=== PATIENT | female | born 1945 | race Caucasian/White ===

== ENCOUNTER → 2023-12-12 10:18 | Outpatient (REF) | payer OTHER, SELFPAY | LOC: RAD 10:18 | PROVIDERS: ATTENDING PHYSICIAN Obstetrics & Gynecology; FAMILY PHYSICIAN Family Medicine | DX: Z78.0 Asymptomatic menopausal state (principal) | CPT/HCPCS: 77080 ==

== ENCOUNTER → 2024-04-16 09:36 | Outpatient (REF) | payer OTHER, SELFPAY | LOC: RCS 09:36 | PROVIDERS: ATTENDING PHYSICIAN Family Medicine | DX: I35.0 Nonrheumatic aortic (valve) stenosis (principal) | CPT/HCPCS: 93306 ==

== ENCOUNTER → 2024-08-31 12:16 | Outpatient (REF) | payer OTHER, SELFPAY | LOC: WDC 12:16 | PROVIDERS: ATTENDING PHYSICIAN Obstetrics & Gynecology; FAMILY PHYSICIAN Family Medicine | DX: Z12.31 Encounter for screening mammogram for malignant neoplasm of breast (principal) | CPT/HCPCS: 77063; 77067 ==

== ENCOUNTER → 2024-10-28 13:02 | Outpatient (REF) | payer OTHER, SELFPAY | LOC: RCS 13:02 | PROVIDERS: ATTENDING PHYSICIAN Internal Medicine Cardiovascular Disease; FAMILY PHYSICIAN Family Medicine | DX: I35.0 Nonrheumatic aortic (valve) stenosis (principal) | CPT/HCPCS: 93306 ==

== ENCOUNTER → 2025-07-25 10:42 | Outpatient (REF) | payer OTHER, SELFPAY | LOC: RCS 10:42 | PROVIDERS: ATTENDING PHYSICIAN Internal Medicine Cardiovascular Disease; FAMILY PHYSICIAN Family Medicine | DX: I35.0 Nonrheumatic aortic (valve) stenosis (principal); I34.0 Nonrheumatic mitral (valve) insufficiency | CPT/HCPCS: 93306 ==

== ENCOUNTER 2025-07-28 14:10 | Observation (INO) | payer OTHER, SELFPAY ==
[2025-07-28] VITALS (11 sets, daily range): BP systolic 108–167; BP diastolic 61–125; BMI 28.1; BMI 27.2
--- NOTE | 2025-07-28 11:08 | ED.CVA ---
History of Present Illness
General
Chief Complaint: CVA/TIA Symptoms
Source: patient and ambulance crew
Time Seen by Provider: 07/28/25 11:08
Onset of Stroke Symptoms
Onset of symptoms known: Yes
Date of onset of symptoms: 07/28/25
Time of onset of symptoms: 09:30
History of Present Illness
History of Present Illness:
80-year-old female brought to the emergency room by ambulance after she developed left-sided facial droop, slurred speech and left-sided paresthesias. Patient called 911 and also called her primary care provider who recommended she come to the
hospital. When medics arrived they noted that her symptoms seem to be resolving. Upon presentation to the emergency room she does continue to have slurred speech however her facial droop and left-sided paresthesias seem to have resolved. Medics
states she ambulated out of the home on her own. Patient states she has been having an intermittent headache over the past week or so. No associated nausea or vomiting. Patient denies the use of Eliquis, Xarelto, Coumadin.
Past History
Past History
ED Past Medical History: HTN, Hypercholesterolemia and NIDDM
ED Past Surgical History: Other
Social History
Tobacco: Non-smoker
Personal:
Living: with family
Employment: Employed
Phy Exam
Physical Exam
Physical Exam:
General: Awake, Alert, Oriented X3. No acute distress.
Vitals: unremarkable
Head: Atraumatic
Eyes: Pupils equal, EOMI
Throat: Airway intact, no exudates
Neck: Trachea midline
Lungs: Clear and equal b/l
Heart: Regular rate, no murmurs
Abd: Soft, Nontender, No pulsatile mass
Neuro: Cranial nerves intact aside from mildly slurred speech, muscle strength equal bilaterally, cerebellar exam normal, no visual field deficit
Skin: Warm, dry, no rash
Extremities: pulses equal b/l, no edema
Scores
NIH Stroke Score
Level of Consciousness: 0 - Alert
LOC Questions: 0-Answers both correctly
LOC Commands: 0-Performs both correctly
Best Horizontal Gaze: 0-Normal
Visual Christy: 0=Normal, no visual loss
Facial Palsy: 0=Normal, symmetrical
Motor - Right Arm: 0=No drift 10 seconds
Motor - Left Arm: 0=No drift 10 seconds
Motor - Right Le-No drift 5 seconds
Motor - Left Le-No drift 5 seconds
Limb Ataxia: 0-Absent
Sensation: 0-Normal
Best Language: 0-No aphasia
Dysarthria: 1-Mild slurring
Extinction and Inattention: 0-No abnormality
NIH Total Score:: 1
Course
Orders/Labs/Results
Orders:
Orders
07/28/25 11:05
Electrocardiogram (*1) Urgent
Reason for Study: Other
Other Reason for Exam: Possible Stroke
CT HEAD STROKE ALERT W/o Cont Urgent
Comment:
Reason For Exam: slurred
Bedside Glucose- Treatment ONCE
Cardiac Monitoring- Treatment ONCE
EKG- Treatment ONCE
IV Insert/Care/Rem.- Treatment PRN
Urinalysis Reflex To Culture Urgent
Date Specimen was Collected: 07/28/25
Time Specimen was Collected: 11:05
Vital Signs As Directed
Frequency: Other
Weight As Directed
Frequency: Once
Comment: ZERO STRETCHER SCALE FOR ACCURATE WEIGHT
O2 Therapy [RESP] Urgent
Titrate/Wean O2 to maintain O2 sat greater than (%): 93
Special Instructions: MAINTAIN CONTINUOUS O2 SATS > OR = 93%
07/28/25 11:06
Cardiovascular Evaluation Urgent
Comment: ADD ON
Complete Blood Count/With Diff Urgent
Comprehensive Metabolic Panel Urgent
Ferritin Urgent
Comment: ADD ON
Folate Urgent
Comment: ADD ON
Glycohemoglobin (HgbA1c) Urgent
PTT Urgent
Prothrombin Time Urgent
TSH Reflex To Free T4 Urgent
Comment: ADD ON
Troponin I Urgent
Vitamin B12 Urgent
Comment: ADD ON
07/28/25 11:07
CT HEAD/NECK ANG STROKE ALERT Urgent
Comment:
Reason For Exam: dysartria, left facial droop
07/28/25 11:22
Prochlorperazine [Compazine] 10 mg IV NOW STA
07/28/25 11:23
Aspirin Chewable [Low Strength Aspirin] 81 mg PO NOW STA
Clopidogrel Bisulfate [Plavix] 75 mg PO NOW STA
07/28/25 13:23
Add On- LAB Routine
Tests Added?: folate, ferritin, TSH reflex, B12, lipid panel, hbA1c
Patient Education As Directed
Type: Stroke education packet
Abnormal Lab Results
07/28/25
11:06
RBC 3.76 L 10^6/uL
(4.20-5.40)
Hct 36.4 L %
(37.0-47.0)
MCH 33.2 H pg
(27.0-31.0)
PT 15.8 H Sec
(11.4-14.6)
Sodium 133 L mmol/L
(135-145)
Total Protein 6.0 L g/dl
(6.3-8.2)
07/28/25 11:06
07/28/25 11:06
Vital Signs
Initial and Last Documented VS:
Initial Vital Signs
Temp Pulse Resp BP Pulse Ox
98.3 F 68 16 159/88 99
07/28/25 11:09 07/28/25 11:09 07/28/25 11:09 07/28/25 11:09 07/28/25 11:09
Last Documented Vital Signs
Temp Pulse Resp BP Pulse Ox
98.3 F 58 16 148/71 99
07/28/25 11:09 07/28/25 13:00 07/28/25 11:09 07/28/25 13:00 07/28/25 12:56
MDM/Problems Addressed
Differential Diagnosis Includes:
Ischemic CVA, hemorrhagic CVA, TIA,
MDM/Problems Addressed:
Patient presents to the emergency room after having an episode of left-sided weakness, tingling and slurred speech. Symptoms have mostly resolved though the patient continues to have some slurred speech. Patient was made a prehospital stroke
alert. Neurology is at the bedside when she arrived. CTA and plain CT obtained. No evidence for bleed. No large vessel occlusion. Given her low NIH score patient not a candidate for TNK. However we will hospitalize her for stroke workup. She
will need an MRI as well.
*Radiology
Radiology exam reviewed: radiology read reviewed
*Pulse Oximetry
SaO2: 99
Oxygen Mode of Delivery: Room air
Patient hypoxic: no
*EKG
Interpreted by ED Provider?: Yes
Interpretation: normal
Heart Rate: 60
Rate: normal
Rhythm: sinus
[place]: normal axis
Interval: normal interval
QRS Pattern: normal QRS
Ischemia: no ischemia
*Perinatal Technician Interpretation
Rate: normal
Interpretation: normal
Heart Rate: 60
Rhythm: sinus
*Critical Care Note
Total Time (30-74mins, 75-104mins- exclusive of procedures): 38 min
comment:
Critical care statement: A total of 38 minutes of critical care time was provided for this patient. This includes management of unstable vital signs, evaluation of the patient at bedside, reviewing the patient's pertinent medical records, discussion
with consultants, review of old EKGs and review of pertinent medical records. This time with separate from time utilized to perform the aforementioned documented procedures
ED Attending Note
-
Portions of this chart may have been created with voice recognition software.� Occasional wrong word or��sound alike� substitutions may have occurred due to the inherent limitations of voice recognition software.
Discharge Plan
Departure
Patient Disposition: Admit
Date of Disposition: 07/28/25
Time of Disposition: 13:05
Presentation/result/management discussed w/ accepting MD/DO: Hospitalist
Condition: Fair
Discharge Problem:
Acute CVA (cerebrovascular accident)
Prescriptions:
No Action
atorvastatin 20 MG tablet
20 mg PO DAILY
lisinopril 20 MG tablet
20 mg PO DAILY
omeprazole 40 MG capsule,delayed release(DR/EC)
40 mg PO DAILY
cholecalciferol (vitamin D3) 1,250 MCG capsule
1 cap PO DAILY
cyanocobalamin (vitamin B-12) 1,000 mcg Tablet
1,000 mcg PO DAILY
Tylenol Sinus 30-500 mg Tablet
1 tab PO DAILYPRN PRN (Reason: congestion)
diphenhydramine-acetaminophen [Acetaminophen PM] 25-500 mg Tablet
1 tab PO HS PRN (Reason: sleep)
Ozempic 1 mg/dose (4 mg/3 mL) Pen Injector
1 mg SC FR
Referrals:
Derrick Wadsworth MD [Family Provider, Family Practice]
Interventions
Interventions:
*Risk Screen - Suicide Last Done: 07/28/25 11:09
*General Assessment Last Done: 07/28/25 11:09
*Neglect/Abuse Screening Last Done: 07/28/25 11:09
*ED COVID-19 Vaccine History Last Done: 07/28/25 11:09
*ED Influenza Vaccine History Last Done: 07/28/25 11:09
[facility] Fall Risk Assessment Tool Last Done: 07/28/25 11:30
ED- Pulmonary Assessment Last Done: 07/28/25 11:20
ED- Neurological Assessment Last Done: 07/28/25 11:20
ED- Cardiac Assessment Last Done: 07/28/25 11:20
ED Swallowing Screen Last Done: 07/28/25 11:30
Discharge Date and Time
Print Language: PALAUAN
--- NOTE | 2025-07-28 11:09 | CON.NEURO4 ---
Addendum entered and electronically signed by Je Kendrick MD 07/28/25 13:44:
Studies reviewed.
I have personally examined the patient. I reviewed and agree with the GENERAL ROAD SUPERVISOR's Note.
My addenda:
Awake, alert, interactive. No acute distress.
Speech intact.
Follows 2-step requests w/o difficulty. No tremor.
Extra-ocular movements grossly intact.
Facial movements full and symmetric. Hearing intact to normal conversational volume.
Normal UE movements bilaterally.
Neck: full ROM.
Chest: no dyspnea
Heart: no JVD
Ext: (-) Clubbing, (-) Cyanosis, (-) Edema
IMPRESSIONS/RECOMMENDATIONS:
Abrupt onset of change in speech with headache
Most likely migraine with aura. DDX TIA
provide DAPT with possible lifelong aspirin use subsequently
check CTA head and neck (done)
follow lipid profile, if LDL > 70, provide Atorvastatin 80 mg HS
provide educational materials
goal of permissive hypertension
provide Rizatriptan for headache
D/W patient / nursing
All questions answered.
Will continue to follow as outpatient.
Original Note:
Documented by User: Abby Koehler NP 07/28/25 13:25
Consultation - Neurology 4
-
CONSULTING PHYSICIAN: Je Kendrick MD
REFERRING PHYSICIAN: ER/Dr. Case
DICTATED BY: STACIE Lane
DATE/TIME OF REQUEST: 07/28/25
DATE/TIME OF CONSULTATION: 07/28/25
Reason for Consultation: Stroke Alert
History of Present Illness:
This is a 80-year-old right-handed female who has presented to the hospital with report of dysarthria and left facial drooping/numbness. Patient reports that this morning she was at her baseline at 0930 on a phone call when suddenly the left side
of her mouth felt numb, her speech became slurred, and her left face was drooping. She called 911 and on EMS arrival at 1020 her speech was slurred but her facial symptoms had resolved. CT head and CTA head/neck were obtained on arrival and are
negative for any acute abnormalities. NIHSS is 0 currently. She is not a candidate for TNK/IAT due to NIHSS 0, resolution of symptoms. Patient reports that currently she has a 'sinus headache' over her left eye. She denies any dizziness, vision
changes, speech/swallow difficulty, numbness, and weakness. She denies any history of TIA, stroke, migraines, or ocular migraines. She is not taking any blood-thinning medications. She reports undergoing outpatient workup by Cardiology recently for
severe aortic stenosis.
Past Medical History: HTN, HLD, NIDDM, severe aortic stenosis, hypothyroidism, GERD, diverticulosis, osteoporosis
Surgical History: R colectomy, R lumpectomy, R L5-S1 TFESI, b/l cataract extraction
Family History: Reviewed and noncontributory.
Social History: Denies tobacco, alcohol, and illicit drug use.
Allergies: No known allergies.
Home Medications: See below.
Review of Symptoms:
Patient denies any fever, chest pain, shortness of breath, GI or symptoms.
�Per the HPI.�All systems are reviewed negative except above.
Physical Exam:
The patient is afebrile, abdomen is nondistended, breathing is unlabored, skin is warm and dry, no edema.
NIH Stroke Scale:
I performed the NIH stroke scale on the patient on 07/28/25 at 1100. The patient scored 0 points on the NIH stroke scale assessment, which were assigned as follows: See below.
Neurologic Examination:
The patient is awake, alert and oriented x 3. She is able to follow commands and answer questions appropriately. There is no aphasia or dysarthria. On cranial nerve assessment, pupils are 3 mm bilateral, round and reactive to light and
accommodation. Visual christy are full. Extraocular movements are intact. Facial sensations are intact and bilaterally symmetrical, there is no facial asymmetry. Hearing is intact bilaterally to normal conversation volume. Tongue palate and uvula are
midline. Sternocleidomastoid strengths are full bilaterally. Motor strengths are 5/5 bilateral upper and lower extremities on medical research [place] scale. There is no drift or involuntary movement noted. There was no extinction noted on double
simultaneous stimulation. Coordination is intact by finger to nose bilaterally.
Lab Results: See below.
Neuro Imaging:
1. CT Head 07/28/25: No intracranial hemorrhage or large transcortical infarct appreciated. ASPECT score: 10/10.
2. CTA Head/Neck 07/28/25: No evidence of large vessel occlusion, or arterial dissection. Multiple left thyroid nodules measuring up to 1.5 cm in diameter. Consider nonemergent thyroid ultrasound for further characterization.
Differentials for the patient's presentation include:
1. Transient left facial numbness/drooping and dysarthria; differential diagnosis includes migraine with aura, TIA, or a small ischemic stroke.
Patient has the following risk factors for their symptoms: HTN, HLD, age
IV Tenecteplase/IAT candidacy: She is not a candidate for TNK/IAT due to NIHSS 0, resolution of symptoms.
Recommendations:
-Provide prochlorperazine 10mg IV x1 now for headache.
-Provide aspirin 81mg and clopidogrel 75mg x1 now. Continue DAPT for 21 days. After 21 days, stop clopidogrel and continue aspirin 81mg daily only.
-Goal normotension.
-LDL goal <70. Lipid panel pending. Increase home atorvastatin 20mg to 40mg daily.
-Goal normoglycemia, hbA1c is pending.
-Provide patient with a stroke education packet.
Discussed patient care with: Dr. Kendrick, the patient
Medications
-
Home Medications
�Medication �Instructions �Recorded
atorvastatin 20 mg tablet 20 mg PO DAILY 05/09/21
cholecalciferol (vitamin D3) 1,250 1 cap PO R Q48H 05/09/21
mcg (50,000 unit) capsule
ibuprofen 200 mg capsule (Advil 200 mg PO PRN PRN pain 05/09/21
Liqui-Gel)
lisinopril 20 mg tablet 20 mg PO DAILY 05/09/21
lorazepam 0.5 mg tablet 0.5 mg PO PRN PRN anxiety 05/09/21
omeprazole 40 mg capsule,delayed 40 mg PO DAILY 05/09/21
release
hydrocodone 5 mg-acetaminophen 325 1 tab PO Q4HPRN PRN pain>4/10 #10 05/11/21
mg tablet tabs
NIH Stroke Score
Subsequent NIH Scale
Date of Subsequent NIH Scale: 07/28/25
Time of Subsequent NIH Scale: 11:00
NIH Stroke Score
Level of Consciousness: 0 - Alert
LOC Questions: 0-Answers both correctly
LOC Commands: 0-Performs both correctly
Best Horizontal Gaze: 0-Normal
Visual Christy: 0=Normal, no visual loss
Facial Palsy: 0=Normal, symmetrical
Motor - Right Arm: 0=No drift 10 seconds
Motor - Left Arm: 0=No drift 10 seconds
Motor - Right Le-No drift 5 seconds
Motor - Left Le-No drift 5 seconds
Limb Ataxia: 0-Absent
Sensation: 0-Normal
Best Language: 0-No aphasia
Dysarthria: 0-Normal
Extinction and Inattention: 0-No abnormality
NIH Total Score:: 0
Modified [place] (mRS) Score
Modified [place] Scale (mRS): No symptoms
Score: 0
Alteplase Contraindication
Inclusion and Exclusion criteria reviewed: Yes
IAT Contraindications: Imaging doesn't show large vessel occlusion as cause of stroke
Vital Signs and Labs
-
Vital Signs and Labs:
Vital Signs
Temp Pulse Resp BP Pulse Ox
98.3 F 58 16 148/71 99
07/28/25 11:09 07/28/25 13:00 07/28/25 11:09 07/28/25 13:00 07/28/25 12:56
Lab Results
07/28/25 11:06
07/28/25 11:06
PT 15.8 Sec (11.4-14.6) H 07/28/25 11:06
INR 1.29 07/28/25 11:06
APTT 25.8 Sec (23.4-35.0) 07/28/25 11:06
Sodium 133 mmol/L (135-145) L 07/28/25 11:06
Potassium 4.3 mmol/L (3.5-5.1) 07/28/25 11:06
BUN 15 mg/dl (7-17) 07/28/25 11:06
Glucose 86 mg/dl (70-99) 07/28/25 11:06
Calcium 9.3 mg/dl (8.4-10.2) 07/28/25 11:06

Documented by User: Je Kendrick MD 07/28/25 13:38
NIH Stroke Score
NIH Stroke Score
NIH Total Score:: 0
Modified [place] (mRS) Score
Score: 0
[2025-07-28] MEDS: LOW STRENGTH ASPIRIN 81 MG PO (11:41)
[2025-07-28] MEDS: PLAVIX 75 MG PO (11:41)
[2025-07-28] MEDS: COMPAZINE 10 MG IV (11:41)
[2025-07-28 11:55] LABS: INR 1.29; PT 15.8 Sec (11.4-14.6)
[2025-07-28 11:56] LABS: ALT (SGPT) 20 U/L (0-35); APTT 25.8 Sec (23.4-35.0); AST (SGOT) 20 U/L (14-36); Albumin 3.5 g/dl (3.5-5.0); Alkaline Phosphatase 55 U/L (38-126); Blood Urea Nitrogen 15 mg/dl (7-17); Calcium 9.3 mg/dl (8.4-10.2); Carbon Dioxide 25 mmol/L (22-30); Chloride 104 mmol/L (98-107); Estimated Creatinine Clearance 70 ml/min; Glucose 86 mg/dl (70-99); Potassium 4.3 mmol/L (3.5-5.1); Sodium 133 mmol/L (135-145); Total Protein 6.0 g/dl (6.3-8.2); eGFR > 60.00
[2025-07-28 11:57] LABS: Hematocrit 36.4 % (37.0-47.0); Hemoglobin 12.5 g/dL (12.0-16.0); Mean Corp Hgb Conc. 34.3 g/dL (33.0-37.0); Mean Corpuscular Volume 96.8 fL (81.0-99.0); Nucleated Red Blood Cells % 0 %; Platelet Count 247 10^3/uL (130-400); Red Cell Dist. Width 12.6 % (11.5-14.5)
[2025-07-28 12:07] LABS: Troponin I 0.014 ng/ml
--- NOTE | 2025-07-28 12:45 | EDRN ---
Friend at bedside with patient, call heart in reach.
--- NOTE | 2025-07-28 13:22 | EDRN ---
Patient aware she is being admitted and just waiting on admission at this time, call sly in reach, VSS
--- NOTE | 2025-07-28 13:45 | HPS.HSE ---
Family Physician
-
Family Physician: Derrick Wadsworth
Chief Complaint
-
Speech difficulty
History of Present Illness
Patient 80 years old female history of hypertension, hyperlipidemia, severe aortic stenosis, GERD, diverticulosis, osteoporosis, continuing to the hospital with sudden onset of left facial droop dysarthria and numbness. She was talking on the phone
around 9 to 9:30 AM when she suddenly felt her left side of her mouth completely numb and she started becoming slurred speech and her left face was droopy. She did complain of some sinus headache. She denies any focal weakness on her arms or legs.
She denies any paresthesias in any other parts of her body. She denies any dysphagia or diplopia. She denies any chest pain or shortness of breath. She denies any tonic-clonic activity bowel bladder incontinence. She has not been ill and she
denies any nausea vomiting diarrhea fevers or chills. She called 911 and she was brought into the hospital. She was a stroke alert and neurology was consulted and felt that she was not a TNK candidate due to low NIH score and resolution of
symptoms. She had a CT scan of the head no acute intracranial abnormalities. She was referred to hospitalist service for further evaluation.
Medical History
Past Medical History
Past Medical History: Reports Other (Hypertension, hyperlipidemia, probable diabetes mellitus, severe aortic stenosis, probable hypothyroidism, GERD, diverticulosis, osteoporosis.)
Past Surgical History: Reports Other (Right colectomy, right lumpectomy, right L5-S1 TFESI, bilateral cataract extraction.)
Social History
Tobacco: Non-smoker
Alcohol: None
Drug: None
Family History
Family History: Not pertinent
Allergies / Home Medications
Allergies reflects when Allergies were last updated in [employer].
Home Medications with original date entered in [employer]
Allergy/Medication List:
Allergies
Allergy/AdvReac Type Severity Reaction Status Date / Time
No Known Allergies Allergy Verified 07/28/25 11:29
Home Medications
atorvastatin 20 mg tablet 20 mg PO DAILY 05/09/21
lisinopril 20 mg tablet 20 mg PO DAILY 05/09/21
omeprazole 40 mg capsule,delayed release 40 mg PO DAILY 05/09/21
cholecalciferol (vitamin D3) 25 mcg (1,000 unit) tablet (Vitamin D3) 25 mcg PO DAILY 07/28/25
cyanocobalamin (vitamin B-12) 1,000 mcg tablet 1,000 mcg PO DAILY 07/28/25
diphenhydramine 25 mg-acetaminophen 500 mg tablet (Acetaminophen PM) 1 tab PO HS PRN sleep 07/28/25
pseudoephedrine 30 mg-acetaminophen 500 mg tablet 1 tab PO DAILYPRN PRN congestion 07/28/25
semaglutide 1 mg/dose (4 mg/3 mL) subcutaneous pen injector (Ozempic) 1 mg SC FR 07/28/25
Review of Systems
-
A 12 point ROS was completed and negative except as noted: Yes
Physical Exam
Vital Signs
Vital Signs
Temp Pulse Resp BP Pulse Ox
98.3 F 58 16 148/71 99
07/28/25 11:09 07/28/25 13:00 07/28/25 11:09 07/28/25 13:00 07/28/25 13:33
Physical exam:
General: Well Developed, Well Nourished and No Apparent Distress
HEENT: Normocephalic, Atraumatic and Moist Mucous Membranes
Respiratory: Clear to Auscultation; Negative Wheezes, Rales or Rhonchi
Cardiac: Regular Rhythm and S1/S2, systolic ejection murmur
GI: Soft, Nontender and Nondistended
Musculoskeletal: No Clubbing, No Cyanosis and No Edema
Neuro: Awake, Alert and Oriented, no neurological deficits
Psych: Calm
Physical Exam
General: Other
Laboratory Results
-
07/28/25 11:06
07/28/25 11:06
Laboratory Results
PT 15.8 Sec (11.4-14.6) H 07/28/25 11:06
INR 1.29 07/28/25 11:06
APTT 25.8 Sec (23.4-35.0) 07/28/25 11:06
Total Bilirubin 0.7 mg/dl (0.2-1.3) 07/28/25 11:06
AST 20 U/L (14-36) 07/28/25 11:06
ALT 20 U/L (0-35) 07/28/25 11:06
Alkaline Phosphatase 55 U/L (38-126) 07/28/25 11:06
Troponin I 0.014 ng/ml 07/28/25 11:06
Data Reviewed
-
CT Scan: Image Personally Visualized and interpreted
Lab Data: Labs Reviewed by me
Impression/Plan
-
IMPRESSION:
Patient is 80 years female with multiple comorbidities presented to the hospital with sudden onset neurological deficits. Consistent with TIA.
PLAN:
Acute TIA rule out CVA:
Continue dual antiplatelet therapy aspirin and Plavix
Continue statin
Check lipids
Neurology consult
Plan for MRI of the brain
Hypertension:
Continue home antihypertensives
Allow permissive hypertension
Hyperlipidemia:
Continue statin
Severe arctic stenosis:
Plan for TAVR as outpatient
Patient tells she has been optimized by her cardiology as outpatient (Dr. Rowland)
DVT prophylaxis:
Lovenox SQ
CODE STATUS:
Full code
Time spent 75 minutes
[2025-07-28 13:58] LABS: HDL Cholesterol 61 mg/dl; LDL Cholesterol, Calculated 46 mg/dl; Very Low Density Lipoprotein 12 mg/dl (0-30)
[2025-07-28 14:57] LABS: Glucose - Point of Care 74 mg/dl (70-99)
--- NOTE | 2025-07-28 15:06 | EDRN ---
Patient ambulated to the restroom and back in bed resting comfortably, call heart in reach.
[2025-07-28 15:25] LABS: Urine Character Clear (Clear)
[2025-07-28 15:40] LABS: Ferritin 122.0 ng/ml (11.1-264.0)
[2025-07-28 16:08] LABS: Urine Red Blood Cell 0-2 /HPF (0-2); Urine White Cell 0-2 /HPF (0-5)
[2025-07-28 16:12] LABS: Folate 4.8 ng/ml (2.76-20); Vitamin B12 784 pg/ml (239-931)
[2025-07-28] MEDS: LOVENOX 40 MG SC (17:47)
--- NOTE | 2025-07-28 17:57 | PTOTSP ---
Speech Therapy Evaluation:
Pt with acute (CVA vs TIA) on chronic (GERD) risk factors of dysphagia, however oropharyngeal swallow appeared WFL at bedside. No chest imaging completed thus far, however pt without dysphagia hx, WBC WNL, and pt on room air.
Recommend:
1. Regular solids and thin liquids
2. Medications as tolerated
3. General aspiration and reflux precautions
4. ASSOCIATE DIRECTOR OF SALES to follow pending results of MRI to determine if further swallowing intervention warranted vs need for language/cognitive testing.
[2025-07-29 03:00] VITALS: BP 141/67
[2025-07-29 05:38] LABS: Hematocrit 37.2 % (37.0-47.0); Hemoglobin 12.8 g/dL (12.0-16.0); Mean Corp Hgb Conc. 34.4 g/dL (33.0-37.0); Mean Corpuscular Volume 95.4 fL (81.0-99.0); Platelet Count 254 10^3/uL (130-400); Red Cell Dist. Width 12.5 % (11.5-14.5)
[2025-07-29 06:06] LABS: Blood Urea Nitrogen 11 mg/dl (7-17); Calcium 9.5 mg/dl (8.4-10.2); Carbon Dioxide 26 mmol/L (22-30); Chloride 107 mmol/L (98-107); Estimated Creatinine Clearance 54 ml/min; Glucose 93 mg/dl (70-99); HDL Cholesterol 60 mg/dl; LDL Cholesterol, Calculated 45 mg/dl; Potassium 3.9 mmol/L (3.5-5.1); Sodium 137 mmol/L (135-145); Very Low Density Lipoprotein 26 mg/dl (0-30); eGFR > 60.00
[2025-07-29 07:38] VITALS: BP 130/67
[2025-07-29] MEDS: VITAMIN B-12 1000 MCG PO (08:39)
[2025-07-29] MEDS: PROTONIX 40 MG PO (08:40)
[2025-07-29] MEDS: LIPITOR 20 MG PO (08:40)
[2025-07-29] MEDS: LOW STRENGTH ASPIRIN 81 MG PO (08:40)
[2025-07-29] MEDS: PLAVIX 75 MG PO (08:40)
[2025-07-29] MEDS: ZESTRIL 20 MG PO (08:40)
[2025-07-29 10:20] VITALS: BP 121/66; PULSE 73; O2SAT 98
[2025-07-29 10:49] VITALS: BP 121/66; PULSE 73; O2SAT 98
[2025-07-29 11:16] LABS: Glycohemoglobin (HgbA1c) 5.4 % (4.0-5.9)
--- NOTE | 2025-07-29 11:55 | W.PN.HOSP.TC ---
Today's Communication/Plan
-
MRI of the brain. Planning discharge today
Assessment / Plan
Assessment / Plan
Physical exam:
General: Well Developed, Well Nourished and No Apparent Distress
HEENT: Normocephalic, Atraumatic and Moist Mucous Membranes
Respiratory: Clear to Auscultation; Negative Wheezes, Rales or Rhonchi
Cardiac: Regular Rhythm and S1/S2, systolic ejection murmur
GI: Soft, Nontender and Nondistended
Musculoskeletal: No Clubbing, No Cyanosis and No Edema
Neuro: Awake, Alert and Oriented, no neurological deficits
Psych: Calm
A/P:
Acute TIA rule out CVA versus complex migraine:
Continue dual antiplatelet therapy aspirin and Plavix
Continue statin
Check lipids
Neurology consult appreciated
MRI of the brain negative for stroke
Hypertension:
Continue home antihypertensives
Allow permissive hypertension
Hyperlipidemia:
Continue statin
Severe arctic stenosis:
Plan for TAVR as outpatient
Patient tells she has been optimized by her cardiology as outpatient (Dr. Rowland)
DVT prophylaxis:
Lovenox SQ
CODE STATUS:
Full code
Anticipated Discharge: Today
Subjective/Interval History
-
Date of Service: July 29, 2025
Patient feels back to her baseline
Objective Data
-
Labs:
Laboratory Results
07/29/25
05:23
WBC 10.1
Hgb 12.8
Hct 37.2
Plt Count 254
Sodium 137
Potassium 3.9
Chloride 107
Carbon Dioxide 26
BUN 11
Creatinine 0.8
Glucose 93
Calcium 9.5
Vital Signs:
Vital Signs
Temp Pulse Resp BP Pulse Ox
97.7 F 67 16 130/67 94
07/29/25 07:38 07/29/25 07:38 07/29/25 07:38 07/29/25 07:38 07/29/25 07:38
I&O
07/28/25 07/29/25 07/30/25
06:59 06:59 06:59
Intake Total 480 / 480
Balance 480 / 480
[2025-07-29 11:59] VITALS: BP 137/71
--- NOTE | 2025-07-29 12:27 | W.DCSUMMARY ---
Discharge Summary
Discharge Data
Date of Admission: 07/28/25
Date of Discharge: 07/29/25
-
Pending Results: No
Hospital Course
Patient is 80 years old female with history of hypertension, hyperlipidemia, severe aortic stenosis, GERD, diverticulosis, osteoporosis, came into the hospital with sudden onset of dysarthria and left facial droop and numbness and headache. Patient
was kept in the hospital observation and neurology consulted. Neurology did not feel that she was a TNK candidate due to low NIH score and resolution of symptoms. Patient had stroke workup and MRI of the brain negative for acute stroke. Neurology
recommended dual antiplatelet therapy for 3 weeks and afterwards monotherapy and continue with statins. She participated with PT and OT and they recommended no skilled PT and OT needed. Speech therapy also did not feel need for follow-up and she
could have regular diet. Patient is hemodynamically and neurological stable and wants to go home today. We will have her follow-up outpatient with neurology. She will be discharged in stable condition today.
Discharge Plan
-
Patient Disposition: Home (Routine Discharge)
Discharge Diagnosis/Procedures: Complex migraine or transient ischemic attack, resolved. Hyponatremia, improved. History of severe aortic stenosis.
Diet: Low Cholesterol
Activity: As tolerated
Blood Work: Please PCP to order CBC, BMP in 1 week. Also please order TSH and free T4 in 4 to 6 weeks.
Specialty Instructions: Weigh Daily- Call MD for wt gain/loss 3 lbs overnight/5 lbs in 1 week
Referrals:
Je Kendrick MD [Active, Neurology] - in two to four weeks
Derrick Wadsworth MD [Family Provider, Family Practice]
Prescriptions:
New
aspirin 81 mg Tablet,Chewable
81 mg PO DAILY Qty: 30 0RF
clopidogrel 75 mg Tablet
75 mg PO DAILY Qty: 21 0RF
Continued
atorvastatin 20 MG tablet
20 mg PO DAILY
lisinopril 20 MG tablet
20 mg PO DAILY
omeprazole 40 MG capsule,delayed release(DR/EC)
40 mg PO DAILY
cyanocobalamin (vitamin B-12) 1,000 mcg Tablet
1,000 mcg PO DAILY
pseudoephedrine-acetaminophen 30-500 mg Tablet
1 tab PO DAILYPRN PRN (Reason: congestion)
diphenhydramine-acetaminophen [Acetaminophen PM] 25-500 mg Tablet
1 tab PO HS PRN (Reason: sleep)
Ozempic 1 mg/dose (4 mg/3 mL) Pen Injector
1 mg SC FR
cholecalciferol (vitamin D3) [Vitamin D3] 25 mcg (1,000 unit) Tablet
25 mcg PO DAILY
Discharge Orders:
Discharge Patient (As Directed); Ordered 07/29/25
Ordered By: Miguel Ángel Baptiste
Discharge Date and Time
Discharge Date/Time: 07/29/25 13:32
Print Language: MACEDONIAN
== END 2025-07-29 13:32 | disposition home or self-care (01) ==
LOC: 3 WEST ACU 14:10
PROVIDERS: ADMITTING PHYSICIAN Hospitalist; CONSULT PHYSICIAN Psychiatry & Neurology Neurology; EMERGENCY PHYSICIAN Emergency Medicine; FAMILY PHYSICIAN Family Medicine
DX: R47.1 Dysarthria and anarthria (principal); R29.810 Facial weakness; R53.1 Weakness; R47.81 Slurred speech; I10 Essential (primary) hypertension; E78.00 Pure hypercholesterolemia, unspecified; E11.9 Type 2 diabetes mellitus without complications; R51.9 Headache, unspecified; I35.0 Nonrheumatic aortic (valve) stenosis; M81.0 Age-related osteoporosis without current pathological fracture; E03.9 Hypothyroidism, unspecified; K21.9 Gastro-esophageal reflux disease without esophagitis; E04.2 Nontoxic multinodular goiter; I25.2 Old myocardial infarction; G31.9 Degenerative disease of nervous system, unspecified; I67.82 Cerebral ischemia; E87.1 Hypo-osmolality and hyponatremia; Z90.49 Acquired absence of other specified parts of digestive tract; Z98.41 Cataract extraction status, right eye; Z98.42 Cataract extraction status, left eye; Z79.85 Long-term (current) use of injectable non-insulin antidiabetic drugs
CPT/HCPCS: 70450; 70496; 70498; 70551; 80048; 80053; 80061; 81003; 81015; 82607; 82728; 82746; 82962; 83036; 84439; 84443; 84484; 85025; 85027; 85610; 85730; 92610; 93005; 97161; 97165; 99291; G0378; Q9967